=== PATIENT | female | born 1945 | race Caucasian/White ===

== ENCOUNTER 2017-04-06 14:52 | Emergency (ER) | payer OTHER ==
[~2017-04-06] VITALS: Ht 154.9 cm; Wt 62.7 kg
[~2017-04-06 14:52] MED LIST: AMLO5TAB2 PO; CHOL200025 PO; DOCU240C41 PO; LIDO5CRE17 TOPICAL; LIPA1CAP3 PO; LOPE1LIQ9 PO; LORA0.5T PO; METO25TA6 PO; MULT-1065 PO; NAPR220C11 PO; PROC-4 PO; SLO64 PO; ZLP5T PO
[2017-04-06 14:56] VITALS: BP 127/77; PULSE 91; RESP 16; O2SAT 99
--- NOTE | 2017-04-06 15:03 | ED.REPORT ---
HPI-General Illness Date of Service Apr 06, 2017 ED Provider: JessikaJohn Peggy RAMIREZ Pt is a 72 y/o female with a history of pancreatic cancer and hypertension who presents to the ED c/o a 100.8 fever onset last night. Additional symptoms include fatigue, malaise, nasal congestion, sinus pressure, headache, constipation, halitosis, and abdominal pain with no BM since yesterday which is not normal. She denies chest pain, dysuria, cough, neck pain, rash, or SOB. She states she has recently been on an airplane and thinks that is where she might have gotten her sinus pressure. She had her most recent dose of chemotherapy on Saturday, and sees oncologist, Dr. Mares. She takes gemcitabine and Paclitaxel every other week for her chemotherapy. She is also on medications for hypertension. Nursing Notes Stated Complaint: FEVER,HAS PANCREATIC CANCER Chief Complaint: General Complaint Nursing Notes Reviewed: Yes Allergies: Coded Allergies: ergonovine (Verified Allergy, Intermediate, mild stroke, 04/06/17) procaine (Verified Allergy, Mild, shakiness, 04/06/17) Uncoded Allergies: STRAWBERRIES (Allergy, Mild, if too many eaten will break out in hives, 11/28) Scheduled Amlodipine (Amlodipine) 5 Mg Tablet 5 MG PO DAILY Cholecalciferol (Vitamin D3) (Vitamin D3) 2,000 Unit Tablet 2,000 UNIT PO DAILY Docusate Calcium (Stool Softener) 240 Mg Capsule 240 MG PO PRN Levofloxacin (Levaquin) 750 Mg Tablet 750 MG PO DAILY Lidocaine Cream (Lidocaine Cream) 5 Gm Cream..g. 1 APPLIC TOPICAL PRN EMLA CREAM Lipase/Protease/Amylase (Adriana CUNHA) 12,000 Unit Capsule 7-8 CAPSULE PO DAILY Loperamide Liquid (Imodium A-D Liquid) 1 Mg/7.5 Ml Liquid 5 ML PO prn Magnesium Chloride (Slow-Mag) 64 Mg Tablet 1 TAB PO DAILY Metoprolol Tartrate (Metoprolol Tartrate) 25 Mg Tablet 25 MG PO DAILY Multivits-Min/Iron/FA/Lutein (Centrum Silver Women Tablet) 8 Mg Iron-400 Mcg- 300 Mcg Tablet 1 EACH PO DAILY Naproxen Sodium (Aleve) 220 Mg Capsule 2 TAB PO PRN Prochlorperazine Maleate (Compazine) 10 Mg Tablet 10 MG PO q6hrs prn Scheduled PRN Lorazepam (Lorazepam) 0.5 Mg Tablet 0.5-1 MG PO q4-6hrs prn PRN PRN For Insomnia Zolpidem (Ambien) 5 Mg Tablet 5 MG PO HS PRN PRN For Insomnia General Time Seen by MD: 15:02 Chief Complaint Fever Hx Obtained From: Patient, Spouse Arrived By: Walk-in Sudden in Onset?: Yes Onset Occurred: Yesterday Context Related History: Reports Cancer Recent Healthcare: Recent doctor visit Similar Sx Previous: No Past Medical History Past Medical History Pancreatic cancer Reports: Hypertension Past Surgical History Biliary stent Smoking History Unknown if Ever Smoker Social History Alcohol Use: "Social" Other Social History: Good social support, Ambulatory Status Independent Review of Systems Halitosis Full Review of Systems Constitutional: Reports: Fatigue, Fever (100.8), Malaise Ears / Nose / Throat: Reports: Nasal congestion, Sinus problem, Denies: Earache bilateral, Sore throat Respiratory: Denies: Non-productive cough, Prod cough, clear, Shortness of breath Cardiovascular: Denies: Chest pain GI: Reports: Abdominal pain, Constipation Female: Denies: Dysuria Musculoskeletal: Denies: Neck pain Skin: Denies Rash Neurologic: Reports: Headache Complete sys rev & neg: except as marked. Physical Exam Vital Signs Vital Signs Date Time Temp Pulse Resp B/P Pulse Ox O2 Delivery O2 Flow Rate FiO2 04/06/17 14:56 37.1 91 16 127/77 99 Room Air Initial VS: Reviewed Head / Eyes: Atraumatic, Normocephalic Neck: Supple, Full range of motion Back: No CVA tenderness Lymphatic: No lymphadenopathy Skin: Warm, Dry, No cyanosis Neurologic: Alert, Oriented, Nonfocal Psychiatric: Mood/affect normal, Behavior normal, Normal thought content General/Constitutional: Awake, Alert, No acute distress, Cooperative, Not toxic appearing ENT: Atraumatic, Airway patent Mild erythema in posterior oropharynx Right TM normal Left cerumen impaction unable to view TM Bilateral maxillary sinus tenderness to palpation Respiratory / Chest: Atraumatic, Breath sounds NL, Breath sounds = bilat, No respiratory distress Cardiovascular: Heart rate NL, Regular rhythm, Heart sounds NL, No murmurs No peripheral edema Abdomen: Soft, No guarding, No rebound Mild RUQ tenderness to palpation No Abrams's sign Interpretation & Diagnostics Lab Results Interpretation Result Diagram: 04/06/17 1618 04/06/17 1618 Test 04/06/17 16:18 04/06/17 16:30 White Blood Count 5.1th/mm3 (3.8-10.1) Red Blood Count 3.77mil/mm3 (3.90-5.20) Hemoglobin 11.0g/dL (12.0-15.6) Hematocrit 34.1% (35.0-46.0) Mean Corpuscular Volume 90.5fL (81-100) Mean Corpuscular Hemoglobin 29.2pg (27.0-35.0) Mean Corpuscular Hemoglobin Concent 32.3% (32.0-37.0) Red Cell Distribution Width 15.2% (12.3-15.4) Platelet Count 244bil/L (150-400) Neutrophils (%) (Auto) 74.8% (40-74) Lymphocytes (%) (Auto) 21.0% (14-46) Monocytes (%) (Auto) 2.4% (4-12) Eosinophils (%) (Auto) 1.4% (0-5) Basophils (%) (Auto) 0.2% (0-3) Erythrocyte Sedimentation Rate 32mm/hr (0-40) Sodium Level 139mEq/L (134-144) Potassium Level 3.7mEq/L (3.5-5.2) Chloride Level 106mEq/L (97-108) Carbon Dioxide Level 21mmol/L (18-29) Blood Urea Nitrogen 15mg/dL (8-27) Creatinine 0.43mg/dL (0.57-1.00) Estimat Glomerular Filtration Rate 206mL/min (>59) Glucose Level 127mg/dL (60-99) Lactic Acid Level 0.7mmol/L (0.4-2.0) Calcium Level 8.7mg/dL (8.5-10.1) Magnesium Level 1.9mg/dL (1.6-2.6) Total Bilirubin 0.6mg/dL (0.0-1.2) Aspartate Amino Transf (AST/SGOT) 52U/L (0-50) Alanine Aminotransferase (ALT/SGPT) 77U/L (0-32) Alkaline Phosphatase 133U/L (25-165) Total Protein 6.4g/dL (6.4-8.4) Albumin 3.6g/dL (3.4-5.0) Procalcitonin 0.12ng/mL (0.00-0.08) Urine Color Yellow (YELLOW) Urine Appearance Clear (CLEAR,HAZY) Urine pH 5.5 (5.0-8.0) Urine Specific [place] 1.005 (1.003-1.035) Urine Protein Negativemg/dL (NEG,TRACE) Urine Glucose (UA) Negativemg/dL (NEGATIVE) Urine Ketones Negativemg/dL (NEGATIVE) Urine Occult Blood Negative (NEGATIVE) Urine Nitrite Negative (NEGATIVE) Urine Bilirubin Negative (NEGATIVE) Urine Urobilinogen Normalmg/dL (NORMAL) Urine Leukocyte Esterase Small (NEGATIVE) Urine RBC 0-2/hpf (0-2) Urine WBC 0-5/hpf (0-5) Urine Epithelial Cells Few/hpf (NONE-MOD) Urine Crystals None seen (NONE SEEN) Urine Bacteria Many/hpf (NONE-FEW) Urine Hyaline Casts None/lpf (NONE) Urine Granular Casts None seen (NONE SEEN) Urine Waxy Casts None seen (NONE SEEN) Urine Red Blood Cell Casts None seen (NONE SEEN) Urine White Blood Cell Casts None seen (NONE SEEN) Urine Mucus None seen (None Seen) Urine Trichomonas None seen (NONE SEEN) Urine Yeast None (NONE SEEN) Urinalysis Comment None Urine Culture Reflexed Indicated X-Ray Chest Interpretation Chest Xray Interpretation: IMPRESSION: No radiographic evidence of acute cardiopulmonary pathology. Dictated by: Terence Padgett M.D. on 04/06/2017 at 17:09 Approved by: Terence Padgett M.D. on 04/06/2017 at 17:10 View: AP & lat Interpretation / Wet Read by: Interpret - Radiologist Re-Eval/Medical Decision Med Decision/Clinical Course 72-year-old female with a history of pancreatic cancer and hypertension presenting for fevers up to 100.8 and sinus pressure. There is no other source of infection identified today with chest x-ray, UA, or abdominal examination. She is not neutropenic despite being on active chemotherapy regimen and her vitals are normal. She looks very good and is agreeable to be discharged home on antibiotics with a good plan for follow-up and return precautions. I am prescribing Levaquin which will cover most bacterial infections. Source of Hx: Old records Time of Eval: 17:27 Patient Status: Condition improved Re-Evaluation/Progress Note: Patient rechecked. Discussed plan for discharge. Patient understands and agrees with plan. F/U instructions and RTER warnings given. All questions addressed at this time. Counseled Regarding: Diagnosis, Lab results, Need for follow-up, When/why to return to ED Discharge & Departure Primary Impression: Fever Fever type: unspecified Qualified Code: R50.9 - Fever, unspecified Additional Impressions: Sinusitis Sinusitis location: maxillary Chronicity: acute Recurrence: non-recurrent Qualified Code: J01.00 - Acute maxillary sinusitis, unspecified Pancreatic cancer Pancreatic malignancy location: unspecified Qualified Code: C25.9 - Malignant neoplasm of pancreas, unspecified Disposition: Home Discharge Condition All VS Reviewed: Yes Condition: Stable Patient Instructions: Fever in Adults (ED) Additional Instructions: Thank you for entrusting us with your care today. Your evaluation here today returned reassuring. Her vitals are normal and your blood counts are normal other than some mild anemia. There is a test, pro- calcitonin performed that indicates an infection. I believe that ear infection is from sinusitis. You received 1 dose of Levaquin 750 mg here in the ER and I would like you to take it for the next 4 days. Please return to the emergency department if you have a persistent high fever, shortness of breath, cough, dizziness, or any new/worsening symptoms. Take Levaquin once per day as prescribed. Follow up with Dr. Mares or your primary care physician early next week. Referrals: Kailee Milner MD (PCP) Abilio Gardner MD Scribe Attestation Portions of this note were transcribed by Gisela Moon and Chantal Jacobo. I, Dr. Rosen, personally performed the history, physical exam and medical decision-making; I reviewed and confirmed the accuracy of the information in the transcribed note. copies to: Kailee Milner MD; Abilio Gardner MD, Gary R DO Apr 06, 2017 15:03 Gisela Moon Apr 06, 2017 15:27 CHANTAL JACOBO Apr 06, 2017 16:43
[2017-04-06] MEDS ORDERED: 0.9% Sodium Chloride 1,000 ML IV ONE (15:24)
[2017-04-06] MEDS ORDERED: levoFLOXacin 750 mg Tablet PO ONE (15:25)
[2017-04-06 16:28] LABS: BASOPHILS % (AUTO) 0.2 % (0-3); EOSINOPHILS % (AUTO) 1.4 % (0-5); MONOCYTES % (AUTO) 2.4 % (4-12); Mean Corpuscular Hemoglobin 29.2 pg (27.0-35.0); Mean Corpuscular Volume 90.5 fL (81-100); NEUTROPHILS % (AUTO) 74.8 % (40-74); Platelet Count 244 bil/L (150-400)
[2017-04-06 16:48] LABS: Magnesium 1.9 mg/dL (1.6-2.6)
[2017-04-06 16:53] LABS: ERYTHROCYTE SEDIMENTATION RATE 32 mm/hr (0-40)
[2017-04-06 17:06] LABS: APPEARANCE,URINE CLEAR (CLEAR,HAZY); COLOR,URINE YELLOW (YELLOW); OCCULT BLOOD,URINE NEGATIVE (NEGATIVE); PH,URINE 5.5 (5.0-8.0); UROBILINOGEN,URINE NORMAL (NORMAL)
--- NOTE | 2017-04-06 17:12 | DRSVH ---
PROCEDURE: X-RAY CHEST, TWO VIEWS ([id number]) INDICATIONS: FEVER, ON CHEMO TECHNIQUE: 2 views of the chest were acquired. COMPARISON: None. FINDINGS: Surgical changes and devices: Atrial septal defect closure device. Right-sided portacatheter tip in t he mid SVC. Upper abdominal surgical stent. Lungs and pleura: No pleural effusions or pneumothorax. Lungs are clear. Mediastinum: Mediastinal contours are normal. Heart size is normal. Bones and chest wall: No suspicious bony abnormalities. Soft tissues appear unremarkable. IMPRESSION: No radiographic evidence of acute cardiopulmonary pathology. Dictated by: Ternece Padgett M.D. on 04/06/2017 at 17:09 Approved by: Terence Padgett M.D. on 04/06/2017 at 17:10
[2017-04-06] MEDS ORDERED: LEVO750T9 PO (17:43)
[2017-04-06] MEDS ORDERED: HepLOK Flush 100 unit/mL 5 mL Inj ONE (17:56)
[2017-04-06 18:05] VITALS: BP 131/64; PULSE 80; RESP 16; O2SAT 98
== END 2017-04-06 18:06 | disposition home or self-care (01) ==
LOC: SED 14:52
DX: R50.9 Fever, unspecified (principal); J01.00 Acute maxillary sinusitis, unspecified; C25.9 Malignant neoplasm of pancreas, unspecified; I10 Essential (primary) hypertension; Z88.4 Allergy status to anesthetic agent; Z88.8 Allergy status to other drugs, medicaments and biological substances
CPT/HCPCS: 36415; 71020; 80053; 81000; 83605; 83735; 84145; 85025; 85651; 87040; 87077; 87086; 87088; 87186; 96360; 99285; J1642; J7030

== ENCOUNTER 2017-04-17 18:33 | Emergency (ER) | payer OTHER ==
[~2017-04-17] VITALS: Ht 154.9 cm; Wt 63.2 kg
[2017-04-17 18:46] VITALS: BP 116/72; PULSE 94; RESP 16; O2SAT 97
== END 2017-04-17 19:53 | disposition left against medical advice (07) ==
LOC: SED 18:33
DX: R50.9 Fever, unspecified (principal); Z53.21 Procedure and treatment not carried out due to patient leaving prior to being seen by health care provider